=== PATIENT | female | born 1980 | race African-American/Black ===

== ENCOUNTER 2021-12-19 16:30 | Emergency (ER) | payer BC ==
[~2021-12-19] VITALS: Ht 175.3 cm; Wt 104.8 kg
[2021-12-19] MEDS ORDERED: cloNIDine HCL 0.1 MG TAB ONE (16:54)
[2021-12-19] MEDS ORDERED: cloNIDine HCL 0.1 MG TAB PO ONE (17:00)
[2021-12-19] MEDS ORDERED: amLODIPine BESYLATE 5 MG TAB PO ONE (20:15)
[2021-12-19 22:12] LABS: Basophils # (auto) 0.1 10 ^3/uL (0-0.2); Eosinophils # (auto) 0.1 10 ^3/uL (0-0.8); Hemoglobin 8.8 g/dL (12.2-16.2); Lymphocytes # (auto) 2.5 10 ^3/uL (0.4-5.4); Monocytes # (auto) 0.8 10 ^3/uL (0-1.3); Monocytes % (auto) 8.6 % (0.0-12.0)
[2021-12-19 22:15] LABS: Basophils % (auto) 0.7 % (0.0-2.0); Eosinophils % (auto) 0.5 % (0.0-7.0); Hematocrit 29.3 % (36.0-46.0); Lymphocytes % (auto) 27.1 % (10.0-50.0); Mean Corpuscular Hemoglobin 18.4 pg (28.0-32.0); Mean Corpuscular Hgb Conc. 30.2 g/dL (32.0-36.0); Neutrophils # (auto) 5.9 10 ^3/uL (1.6-8.6); Neutrophils % (auto) 63.1 % (37.0-80.0); Nucleated Red Blood Cells % 0.1 %; Red Cell Distribution Width 18.9 % (11.8-14.3); White Blood Cell 9.3 10^3/uL (4.4-10.8)
[2021-12-19 22:24] LABS: Albumin 3.1 g/dL (3.4-5.0); Potassium 3.4 mmol/L (3.5-5.1)
[2021-12-19 22:26] LABS: BUN/Creatinine Ratio 10.8
[2021-12-19 22:28] LABS: Bilirubin, Total 0.3 mg/dL (0.2-1.0); Total Protein 6.7 g/dL (6.4-8.2)
[2021-12-19] MEDS ORDERED: LABETALOL HCL 5 MG/ML 4ML SYRINGE IV ONE (23:00)
[2021-12-19 23:41] LABS: Urine Bacteria FEW /hpf (None Seen); Urine Blood Negative /uL (Negative); Urine Hyaline Cast FEW /lpf (0 - 2); Urine Mucus FEW (None Seen); Urine Specific Gravity 1.013 (1.001-1.035); Urine WBC 6 /hpf (0 - 5)
[2021-12-20] MEDS ORDERED: AMOXICILLIN/CLAVUL 875 MG TAB PO ONE (01:45)
[2021-12-20 02:00] VITALS: BP 168/93
[2021-12-20] MEDS ORDERED: AMOX500T86 PO (02:01)
[2021-12-20] MEDS ORDERED: AML5T PO (02:06)
== END 2021-12-20 02:29 | disposition home or self-care (01) ==
LOC: ER 16:34
DX: I16.0 Hypertensive urgency (principal); J32.9 Chronic sinusitis, unspecified
CPT/HCPCS: 36415; 70450; 71045; 80053; 81001; 84484; 85025; 93005; 96374; 99285; J3490

== ENCOUNTER 2021-12-22 10:26 | Inpatient (IN) | payer BC ==
[~2021-12-22] VITALS: Ht 175.3 cm; Wt 109.8 kg
[~2021-12-22 10:26] MED LIST: AML5T PO; AMOX500T86 PO
[2021-12-22 11:30] LABS: Basophils # (auto) 0.1 10 ^3/uL (0-0.2); Basophils % (auto) 0.7 % (0.0-2.0); Eosinophils # (auto) 0.1 10 ^3/uL (0-0.8); Eosinophils % (auto) 0.8 % (0.0-7.0); Hematocrit 32.6 % (36.0-46.0); Hemoglobin 10.2 g/dL (12.2-16.2); Lymphocytes # (auto) 1.7 10 ^3/uL (0.4-5.4); Lymphocytes % (auto) 21.8 % (10.0-50.0); Mean Corpuscular Hemoglobin 19.2 pg (28.0-32.0); Mean Corpuscular Hgb Conc. 31.3 g/dL (32.0-36.0); Mean Corpuscular Volume 61.2 fL (80.0-100.0); Monocytes # (auto) 0.5 10 ^3/uL (0-1.3); Monocytes % (auto) 6.3 % (0.0-12.0); Neutrophils # (auto) 5.6 10 ^3/uL (1.6-8.6); Neutrophils % (auto) 70.4 % (37.0-80.0); Red Blood Cells 5.32 10^6/uL (4.0-5.20); Red Cell Distribution Width 18.8 % (11.8-14.3); White Blood Cell 7.9 10^3/uL (4.4-10.8)
[2021-12-22 11:31] LABS: Potassium 3.1 mmol/L (3.5-5.1)
[2021-12-22 11:39] LABS: Albumin 3.5 g/dL (3.4-5.0); Bilirubin, Total 0.4 mg/dL (0.2-1.0); Calcium 8.6 mg/dL (8.5-10.1); Total Protein 7.8 g/dL (6.4-8.2)
[2021-12-22] MEDS ORDERED: HYDROcodone-ACET 5/325MG TAB PO PRN (12:45)
[2021-12-22] MEDS ORDERED: hydrALAZINE HCL 20 MG/ML VL IV ONE (12:45)
[2021-12-22] MEDS ORDERED: DOCUSATE SOD 100 MG CAP PO PRN (12:45)
[2021-12-22] MEDS ORDERED: MORPHINE SULFATE INJ 2 MG/ml SYRG IV PRN (12:45)
[2021-12-22] MEDS ORDERED: POTASSIUM CHL 20 Meq TABLET PO ONE (12:45)
[2021-12-22] MEDS ORDERED: NITROGLYCERIN 0.4 MG SL TAB SL PRN (12:45)
[2021-12-22 13:19] LABS: % Iron Saturation 4.1 % (15-50)
[2021-12-22] MEDS ORDERED: DEXTROSE (50%) 50ML SYRG IV PRN (15:00)
[2021-12-22] MEDS ORDERED: SODIUM CHLORIDE 0.9% 1,000 ML IV ONE (15:00)
[2021-12-22 15:33] LABS: Phosphorus 1.8 mg/dL (2.5-4.90)
[2021-12-22] MEDS: InsuLIN REG 1unit/0.01ml Soln (100units/ml) SC SCH ×2 (17:18→23:06)
[2021-12-22] MEDS: ACCU-CHEK COMFORT CURVE STRIP VI SCH ×2 (17:18→21:45)
[2021-12-22 23:21] LABS: Urine Bacteria NONE SEEN /hpf (None Seen); Urine Blood 3+ /uL (Negative); Urine Specific Gravity 1.009 (1.001-1.035); Urine WBC 2 /hpf (0 - 5)
[2021-12-22 23:33] LABS: Creatinine, Urine 44 mg/dL (30.0-125.0); Sodium Urine 105 mmol/L (40-220)
[2021-12-23] VITALS (37 sets, daily range): BP systolic 132–171; BP diastolic 68–103
[2021-12-23 06:51] LABS: Basophils # (auto) 0.1 10 ^3/uL (0-0.2); Basophils % (auto) 1.2 % (0.0-2.0); Eosinophils # (auto) 0 10 ^3/uL (0-0.8); Lymphocytes # (auto) 2.2 10 ^3/uL (0.4-5.4); Monocytes # (auto) 0.7 10 ^3/uL (0-1.3); Neutrophils % (auto) 65.1 % (37.0-80.0)
[2021-12-23 06:52] LABS: Eosinophils % (auto) 0.5 % (0.0-7.0); Hematocrit 31.5 % (36.0-46.0); Hemoglobin 9.5 g/dL (12.2-16.2); Lymphocytes % (auto) 25.1 % (10.0-50.0); Mean Corpuscular Hemoglobin 18.3 pg (28.0-32.0); Mean Corpuscular Hgb Conc. 30.1 g/dL (32.0-36.0); Mean Corpuscular Volume 60.6 fL (80.0-100.0); Monocytes % (auto) 8.1 % (0.0-12.0); Neutrophils # (auto) 5.6 10 ^3/uL (1.6-8.6); Nucleated Red Blood Cells % 0.1 %; Red Blood Cells 5.19 10^6/uL (4.0-5.20); Red Cell Distribution Width 19.3 % (11.8-14.3); White Blood Cell 8.6 10^3/uL (4.4-10.8)
[2021-12-23] MEDS: ACCU-CHEK COMFORT CURVE STRIP VI SCH ×4 (06:54→21:42)
[2021-12-23] MEDS: InsuLIN REG 1unit/0.01ml Soln (100units/ml) SC SCH ×4 (06:57→21:43)
[2021-12-23 07:09] LABS: Albumin 3.2 g/dL (3.4-5.0)
[2021-12-23 07:13] LABS: BUN/Creatinine Ratio 8.7; Bilirubin, Total 0.5 mg/dL (0.2-1.0)
[2021-12-23] MEDS: ENOXAPARIN SOD 40 MG/0.4 ML SYRINGE SC SCH (09:30)
[2021-12-23] MEDS: LOSARTAN POTASSIUM 25 MG TAB PO SCH (09:32)
[2021-12-23] MEDS ORDERED: amLODIPine BESYLATE 5 MG TAB PO SCH (10:00)
[2021-12-23] MEDS ORDERED: METOPROLOL SUCCINATE XL 50 MG TAB PO ONE (10:30)
[2021-12-23] MEDS ORDERED: POTASSIUM CHL 20 Meq TABLET PO ONE (10:30)
[2021-12-23] MEDS ORDERED: POTASSIUM EFFERVESENT TAB 25 MEQ GT ONE (11:00)
[2021-12-23 12:59] LABS: Cholesterol 163 mg/dL (< 200)
[2021-12-23 13:02] LABS: HDL Cholesterol 38 mg/dL (40-59); LDL Cholesterol 111 mg/dL (< 100); Triglycerides 130 mg/dL (< 150)
[2021-12-23] MEDS ORDERED: VERAPAMIL HCL 40 MG TAB PO SCH ×2 (14:00→22:00)
[2021-12-23] MEDS: hydrALAZINE HCL 20 MG/ML VL IV PRN (15:20)
[2021-12-23 20:17] LABS: % Iron Saturation 3.9 % (15-50)
[2021-12-24] VITALS (24 sets, daily range): BP systolic 133–186; BP diastolic 69–117
[2021-12-24] MEDS: ACCU-CHEK COMFORT CURVE STRIP VI SCH ×4 (05:46→21:50)
[2021-12-24] MEDS: InsuLIN REG 1unit/0.01ml Soln (100units/ml) SC SCH ×4 (05:47→21:50)
[2021-12-24 08:34] LABS: BUN/Creatinine Ratio 8.8; Calcium 8.3 mg/dL (8.5-10.1); Magnesium 2.2 mg/dL (1.6-2.6); Potassium 3.2 mmol/L (3.5-5.1)
[2021-12-24] MEDS: HCTZ 25 MG TAB PO SCH (09:30)
[2021-12-24] MEDS: METOPROLOL SUCCINATE XL 50 MG TAB PO SCH (09:31)
[2021-12-24] MEDS: LOSARTAN POTASSIUM 25 MG TAB PO SCH (09:32)
[2021-12-24] MEDS: ENOXAPARIN SOD 40 MG/0.4 ML SYRINGE SC SCH (10:24)
[2021-12-24] MEDS ORDERED: POTASSIUM EFFERVESENT TAB 25 MEQ PO ONE (12:15)
[2021-12-24] MEDS: hydrALAZINE HCL 20 MG/ML VL IV PRN (13:38)
[2021-12-24] MEDS ORDERED: ACETAMINOPHEN 500 MG TAB PO ONE (15:35)
[2021-12-24] MEDS: ACETAMINOPHEN 500 MG TAB PO PRN (15:40)
[2021-12-24] MEDS ORDERED: ACETAMINOPHEN 500 MG TAB PO PRN (15:45)
[2021-12-24] MEDS: hydrALAZINE HCL 10 MG TAB PO SCH ×2 (18:10→22:03)
[2021-12-25] VITALS (9 sets, daily range): BP systolic 141–183; BP diastolic 77–108
[2021-12-25] MEDS: hydrALAZINE HCL 20 MG/ML VL IV PRN (00:01)
[2021-12-25] MEDS: ACETAMINOPHEN 500 MG TAB PO PRN (01:47)
[2021-12-25 06:07] LABS: Basophils # (auto) 0.1 10 ^3/uL (0-0.2); Basophils % (auto) 1.1 % (0.0-2.0); Eosinophils # (auto) 0 10 ^3/uL (0-0.8); Eosinophils % (auto) 0.6 % (0.0-7.0); Hemoglobin 9.6 g/dL (12.2-16.2); Lymphocytes # (auto) 1.9 10 ^3/uL (0.4-5.4); Lymphocytes % (auto) 26.1 % (10.0-50.0); Mean Corpuscular Hemoglobin 18.5 pg (28.0-32.0); Mean Corpuscular Hgb Conc. 30.9 g/dL (32.0-36.0); Mean Corpuscular Volume 59.8 fL (80.0-100.0); Monocytes # (auto) 0.6 10 ^3/uL (0-1.3); Monocytes % (auto) 7.7 % (0.0-12.0); Neutrophils # (auto) 4.7 10 ^3/uL (1.6-8.6); Neutrophils % (auto) 64.5 % (37.0-80.0); Red Blood Cells 5.19 10^6/uL (4.0-5.20); Red Cell Distribution Width 19.4 % (11.8-14.3); White Blood Cell 7.2 10^3/uL (4.4-10.8)
[2021-12-25] MEDS: hydrALAZINE HCL 10 MG TAB PO SCH ×3 (06:37→21:36)
[2021-12-25] MEDS: ACCU-CHEK COMFORT CURVE STRIP VI SCH ×2 (06:38→11:30)
[2021-12-25] MEDS: InsuLIN REG 1unit/0.01ml Soln (100units/ml) SC SCH ×2 (06:40→11:30)
[2021-12-25 06:48] LABS: Potassium 3.2 mmol/L (3.5-5.1)
[2021-12-25 06:55] LABS: BUN/Creatinine Ratio 11.9; Calcium 8.7 mg/dL (8.5-10.1)
[2021-12-25] MEDS: METOPROLOL SUCCINATE XL 50 MG TAB PO SCH (09:14)
[2021-12-25] MEDS: HCTZ 25 MG TAB PO SCH (09:17)
[2021-12-25] MEDS: LOSARTAN POTASSIUM 25 MG TAB PO SCH (09:19)
[2021-12-25] MEDS: ENOXAPARIN SOD 40 MG/0.4 ML SYRINGE SC SCH (09:19)
[2021-12-25] MEDS ORDERED: POTASSIUM EFFERVESENT TAB 25 MEQ PO ONE (11:00)
[2021-12-25] MEDS ORDERED: HCTZ 25 MG TAB PO ONE (14:45)
[2021-12-25] MEDS ORDERED: METOPROLOL SUCCINATE XL 50 MG TAB PO ONE (14:45)
[2021-12-25] MEDS ORDERED: FERROUS SULFATE 325mg EC TAB PO ONE (15:00)
[2021-12-25] MEDS: ONDANSETRON HCL 4 MG/2 ML VIAL IV PRN (15:57)
[2021-12-26] VITALS (7 sets, daily range): BP systolic 138–174; BP diastolic 81–105
[2021-12-26] MEDS: hydrALAZINE HCL 10 MG TAB PO SCH ×3 (05:12→22:43)
[2021-12-26] MEDS: HCTZ 25 MG TAB PO SCH (10:01)
[2021-12-26] MEDS: METOPROLOL SUCCINATE XL 50 MG TAB PO SCH (10:02)
[2021-12-26] MEDS: LOSARTAN POTASSIUM 25 MG TAB PO SCH (10:02)
[2021-12-26] MEDS: ENOXAPARIN SOD 40 MG/0.4 ML SYRINGE SC SCH (10:03)
[2021-12-26] MEDS ORDERED: amLODIPine BESYLATE 5 MG TAB PO ONE (11:45)
[2021-12-26] MEDS: hydrALAZINE HCL 20 MG/ML VL IV PRN (17:02)
[2021-12-26] MEDS: ONDANSETRON HCL 4 MG/2 ML VIAL IV PRN (22:52)
[2021-12-27] VITALS (8 sets, daily range): BP systolic 106–147; BP diastolic 62–84
[2021-12-27] MEDS ORDERED: hydrALAZINE HCL 25 MG TAB ONE (06:24)
[2021-12-27] MEDS: hydrALAZINE HCL 10 MG TAB PO SCH ×3 (06:27→22:02)
[2021-12-27 06:53] LABS: Basophils # (auto) 0.1 10 ^3/uL (0-0.2); Eosinophils # (auto) 0 10 ^3/uL (0-0.8); Lymphocytes # (auto) 1.7 10 ^3/uL (0.4-5.4); Neutrophils # (auto) 3.8 10 ^3/uL (1.6-8.6); White Blood Cell 6.2 10^3/uL (4.4-10.8)
[2021-12-27 06:57] LABS: Basophils % (auto) 1.1 % (0.0-2.0); Eosinophils % (auto) 0.8 % (0.0-7.0); Hematocrit 31.2 % (36.0-46.0); Hemoglobin 9.4 g/dL (12.2-16.2); Lymphocytes % (auto) 27.5 % (10.0-50.0); Mean Corpuscular Hemoglobin 18.4 pg (28.0-32.0); Mean Corpuscular Hgb Conc. 30.2 g/dL (32.0-36.0); Monocytes # (auto) 0.7 10 ^3/uL (0-1.3); Monocytes % (auto) 10.5 % (0.0-12.0); Neutrophils % (auto) 60.1 % (37.0-80.0); Red Blood Cells 5.12 10^6/uL (4.0-5.20); Red Cell Distribution Width 19.6 % (11.8-14.3)
[2021-12-27 07:06] LABS: Potassium 3.3 mmol/L (3.5-5.1)
[2021-12-27 07:07] LABS: INR 0.95 (0.9-1.15); Partial Thromboplastin Time 25.9 sec (24.6-33.4)
[2021-12-27] MEDS: METOPROLOL SUCCINATE XL 50 MG TAB PO SCH (09:31)
[2021-12-27] MEDS: LOSARTAN POTASSIUM 25 MG TAB PO SCH (09:32)
[2021-12-27] MEDS: amLODIPine BESYLATE 5 MG TAB PO SCH (09:32)
[2021-12-27] MEDS: ENOXAPARIN SOD 40 MG/0.4 ML SYRINGE SC SCH (09:33)
[2021-12-27] MEDS: HCTZ 25 MG TAB PO SCH (09:33)
[2021-12-27] MEDS ORDERED: SPIRONOLACTONE 25 MG TAB PO ONE (15:00)
[2021-12-27] MEDS ORDERED: IOHEXOL 350 MG/ML 100ML IJ ONE (15:27)
[2021-12-27] MEDS ORDERED: LIDOCAINE 2%HCL (LOCAL ANESTH.) INJ 20ML MDV ONE (15:27)
[2021-12-27] MEDS ORDERED: MIDAZOLAM HCL 2MG/2ML 2ml VIAL (1mg/ml) ONE (15:35)
[2021-12-27] MEDS ORDERED: fentaNYL CITRATE 100 MCG/2 ML VL ONE (15:35)
[2021-12-27] MEDS ORDERED: ANGIOMAX 250 MG VIAL IV ONE (15:36)
[2021-12-27] MEDS ORDERED: SODIUM CHL 0.9% 0 ML ONE (15:36)
[2021-12-27] MEDS ORDERED: hydrALAZINE HCL 20 MG/ML VL ONE (15:41)
[2021-12-27] MEDS ORDERED: cloNIDine HCL 0.1 MG TAB ONE (15:49)
[2021-12-27] MEDS ORDERED: ONDANSETRON HCL 4 MG/2 ML VIAL ONE (15:58)
[2021-12-27] MEDS: ONDANSETRON HCL 4 MG/2 ML VIAL IV PRN (18:33)
[2021-12-27] MEDS ORDERED: TEMAZEPAM 15 MG CAP PO ONE (21:15)
[2021-12-27] MEDS ORDERED: HYDROcodone-ACET 5/325MG TAB PO PRN (21:15)
[2021-12-28 05:00] VITALS: BP 144/72
[2021-12-28] MEDS: hydrALAZINE HCL 10 MG TAB PO SCH (05:16)
[2021-12-28 09:08] LABS: BUN/Creatinine Ratio 11.6; Calcium 8.9 mg/dL (8.5-10.1)
[2021-12-28 09:23] LABS: Potassium 2.8 mmol/L (3.5-5.1)
[2021-12-28] MEDS ORDERED: hydrALAZINE HCL 25 MG TAB PO PRN (09:45)
[2021-12-28] MEDS ORDERED: LOSARTAN POTASSIUM 50 MG TAB PO SCH (10:00)
[2021-12-28] MEDS ORDERED: HCTZ 25 MG TAB PO SCH (10:00)
[2021-12-28] MEDS ORDERED: SPIRONOLACTONE 25 MG TAB PO SCH (10:00)
[2021-12-28] MEDS: amLODIPine BESYLATE 5 MG TAB PO SCH (10:24)
[2021-12-28] MEDS: ENOXAPARIN SOD 40 MG/0.4 ML SYRINGE SC SCH (10:25)
[2021-12-28] MEDS: METOPROLOL SUCCINATE XL 50 MG TAB PO SCH (10:25)
[2021-12-28] MEDS ORDERED: POTASSIUM EFFERVESENT TAB 25 MEQ PO ONE ×2 (11:15→14:00)
[2021-12-28] MEDS: SOD CHL 0.9%/ KCL 40MEQ 1,000 ML IV SCH ×2 (11:43→20:33)
[2021-12-28 13:00] VITALS: BP 160/91
[2021-12-28] MEDS: cloNIDine HCL 0.1 MG TAB PO SCH ×2 (14:10→22:31)
[2021-12-28 16:50] VITALS: BP 122/73
[2021-12-28 20:00] VITALS: BP 123/58
[2021-12-28 22:00] VITALS: BP 123/58
[2021-12-29 05:00] VITALS: BP 129/77
[2021-12-29] MEDS: cloNIDine HCL 0.1 MG TAB PO SCH ×3 (05:18→14:42)
[2021-12-29] MEDS: SOD CHL 0.9%/ KCL 40MEQ 1,000 ML IV SCH ×2 (06:26→15:45)
[2021-12-29 09:00] VITALS: BP 127/70
[2021-12-29] MEDS: amLODIPine BESYLATE 5 MG TAB PO SCH (09:36)
[2021-12-29] MEDS: METOPROLOL SUCCINATE XL 50 MG TAB PO SCH (09:36)
[2021-12-29] MEDS: ENOXAPARIN SOD 40 MG/0.4 ML SYRINGE SC SCH (09:36)
[2021-12-29 10:18] LABS: Calcium 8.5 mg/dL (8.5-10.1); Potassium 3.7 mmol/L (3.5-5.1)
[2021-12-29 10:22] LABS: BUN/Creatinine Ratio 12.9; Bilirubin, Total 0.2 mg/dL (0.2-1.0); Total Protein 6.5 g/dL (6.4-8.2)
[2021-12-29 13:00] VITALS: BP 140/83
[2021-12-29] MEDS ORDERED: AML5T PO (15:20)
[2021-12-29] MEDS ORDERED: METO-6 PO (15:20)
[2021-12-29] MEDS ORDERED: HYDR50TA15 PO (15:20)
[2021-12-29 17:00] VITALS: BP 143/92
== END 2021-12-29 18:14 | disposition home or self-care (01) | DRG 305 ==
LOC: ER 10:26 → TELE 12:53 → ICU WEST 12-23 09:01 → TELE-WESTW 12-25 02:07
PROVIDERS: ADMIT Nurse Practitioner Family; ATTEND Student in an Organized Health Care Education/Training Program
PROC: B4181ZZ Fluoroscopy of Bilateral Renal Arteries using Low Osmolar Contrast (ICD-10-PCS; principal; 2021-12-27)
DX: I16.1 Hypertensive emergency (principal); N17.9 Acute kidney failure, unspecified; I42.2 Other hypertrophic cardiomyopathy; D50.9 Iron deficiency anemia, unspecified; E11.65 Type 2 diabetes mellitus with hyperglycemia; E66.9 Obesity, unspecified; Z20.822 Contact with and (suspected) exposure to COVID-19; R51.9 Headache, unspecified; I70.1 Atherosclerosis of renal artery; I10 Essential (primary) hypertension; E87.6 Hypokalemia; Z59.7 Insufficient social insurance and welfare support; Z79.899 Other long term (current) drug therapy; Z82.0 Family history of epilepsy and other diseases of the nervous system; Z82.49 Family history of ischemic heart disease and other diseases of the circulatory system; Z83.3 Family history of diabetes mellitus; Z91.199 Patient's noncompliance with other medical treatment and regimen due to unspecified reason; Z98.891 History of uterine scar from previous surgery; Z68.34 Body mass index [BMI] 34.0-34.9, adult
CPT/HCPCS: 36415; 71045; 80048; 80053; 80061; 81001; 81025; 82570; 82607; 82728; 82962; 83036; 83540; 83550; 83735; 83880; 84100; 84132; 84300; 84443; 84484; 85025; 85610; 85730; 87081; 93005; 93306; 93975; 96361; 96374; 99152; 99291; G0378; J1815; J2250; J2405

== ENCOUNTER 2022-06-28 18:34 | Emergency (ER) | payer SELFPAY ==
[~2022-06-28] VITALS: Ht 175.3 cm; Wt 105.0 kg
[~2022-06-28 18:34] MED LIST changes: -AMOX500T86 PO; +HYDR50TA15 PO; +METO-6 PO
[2022-06-28] MEDS ORDERED: IBUPROFEN 800 MG TAB PO ONE (19:45)
[2022-06-28] MEDS ORDERED: ONDANSETRON ODT 4 MG TAB PO ONE (23:00)
[2022-06-28] MEDS ORDERED: HYDROcodone-ACET 10/325MG TAB PO ONE (23:00)
[2022-06-28] MEDS ORDERED: ACE3T PO (23:01)
[2022-06-28 23:16] VITALS: BP 167/94
== END 2022-06-29 01:06 | disposition home or self-care (01) ==
LOC: ER 18:34
DX: S52.591A Other fractures of lower end of right radius, initial encounter for closed fracture (principal); I10 Essential (primary) hypertension; Z79.899 Other long term (current) drug therapy; V29.99XA Rider (driver) (passenger) of other motorcycle injured in unspecified traffic accident, initial encounter; Y93.89 Activity, other specified; Y92.89 Other specified places as the place of occurrence of the external cause; Y99.8 Other external cause status
CPT/HCPCS: 29125; 73110; 99284; Q0162

== ENCOUNTER → 2023-01-04 | Outpatient (CLI) | payer MEDICAID ==
[~2023-01-04] MED LIST changes: -AML5T PO; +ASPITAB34 PO; +FERR325T24 PO; +HYDR-4296 PO; -HYDR50TA15 PO; +LEVO500T91 PO; +LOSA100T25 PO; -METO-6 PO; +METO1TAB9 PO; +METR-344 PO; +NIFE1TAB30 PO; +POTA8TAB38 PO; +TRAM50TA2 PO
[2023-01-04 12:32] LABS: Basophils # (auto) 0.1 10 ^3/uL (0-0.2); Eosinophils # (auto) 0.1 10 ^3/uL (0-0.8); Hemoglobin 9.9 g/dL (12.2-16.2); Monocytes # (auto) 0.6 10 ^3/uL (0-1.3); White Blood Cell 6.8 10^3/uL (4.4-10.8)
[2023-01-04 12:34] LABS: Basophils % (auto) 0.9 % (0.0-2.0); Hematocrit 32.1 % (36.0-46.0); Mean Corpuscular Hemoglobin 20.1 pg (28.0-32.0); Mean Corpuscular Hgb Conc. 30.8 g/dL (32.0-36.0); Mean Corpuscular Volume 65.2 fL (80.0-100.0); Monocytes % (auto) 9.3 % (0.0-12.0); Neutrophils % (auto) 58.8 % (37.0-80.0); Nucleated Red Blood Cells % 0.2 %; Red Blood Cells 4.91 10^6/uL (4.0-5.20); Red Cell Distribution Width 22.3 % (11.8-14.3)
[2023-01-04 12:52] LABS: Chloride 101 mmol/L (98-107); Sodium 138 mmol/L (136-145)
[2023-01-04 12:53] LABS: Anion Gap 6 (5-15); Calcium 9.3 mg/dL (8.7-10.4); Carbon Dioxide 31 mmol/L (20-30)
[2023-01-04 12:58] LABS: BUN/Creatinine Ratio 8.7 (10.0-20.0); Blood Urea Nitrogen 11 mg/dL (9-23); Glucose 213 mg/dL (74-106)
[2023-01-04 13:13] LABS: Potassium 2.8 mmol/L (3.5-5.1)
== END | disposition home or self-care (01) ==
LOC: LAB 12:13
PROVIDERS: ATTEND Nurse Practitioner Acute Care
DX: Z98.51 Tubal ligation status (principal)
CPT/HCPCS: 36415; 80048; 85025

== ENCOUNTER 2024-05-03 00:19 | Emergency (ER) | payer BC, MEDICAID ==
[~2024-05-03] VITALS: Ht 175.3 cm; Wt 102.1 kg
[~2024-05-03 00:19] MED LIST changes: -HYDR-4296 PO; +HYDR25TA88 PO
[2024-05-03 00:35] VITALS: BP 156/95; PULSE 96; RESP 14; TEMP 99.7; O2SAT 100
--- NOTE | 2024-05-03 01:01 | ED.PDOC ---
SOB-HPI HPI Comments A 44 YEAR OLD FE/MALE PRESENTS TO THE ED WITH COMPLAINT OF FLU LIKE SYMPTOMS . PATIENT REPORTS SYMPTOMS OF BODY ACHES, HEADACHE COUGH AND DIZZINESS X3 DAYS. PATIENT DENIES FEVER, CHILLS, SHORTNESS OF BREATH, CHEST PAIN, ABDOMINAL PAIN, NAUSEA, VOMITING, HEADACHE, OR OTHER COMPLAINTS. NO OTHER SYMPTOMS OR MODIFYING FACTORS AT THIS TIME Chief Complaint: Flu like Time Seen by MD: 00:32 Primary Care Provider: AL Reviewed notes: Nurses Notes, Medications, Allergies Information Source: Patient Past Medical History PAST MEDICAL HISTORY: Anemia, High Lipids, HTN Surgical History: [employer]IST History: Other Family History Family History: Reviewed,noncontributory to illness, Family hx of DM, Family hx of Cancer, Family hx of heart goyo Social History Smoker: Non-Smoker Alcohol: Denies ETOH Use Drugs: Marijuana Lives In: Home Constitutional: reports: others (BODY ACHES); denies: chills, diaphoresis, fatigue, fever, malaise, sweats, weakness EENTM: denies: blurred vision, double vision, ear bleeding, ear discharge, ear drainage, ear pain, ear ringing, eye pain, eye redness, hearing loss, mouth pain, mouth swelling, nasal discharge, nose bleeding, nose congestion, nose pain, photophobia, tearing, throat pain, throat swelling, voice changes, others Respiratory: reports: cough; denies: hemoptysis, orthopnea, SOB at rest, shortness of breath, SOB with excertion, stridor, wheezing, others Cardiovascular: denies: chest pain, dizzy spells, diaphoresis, Dyspnea on exertion, edema, irregular heart beat, left arm pain, lightheadedness, palpitations, PND, syncope, others Gastrointestinal: denies: abdomen distended, abdominal pain, blood streaked bowels, constipated, diarrhea, dysphagia, difficulty swallowing, hematemesis, melena, nausea, poor appetite, poor fluid intake, rectal bleeding, rectal pain, vomiting, others Genitourinary: denies: abnormal vagina bleeding, burning, dyspareunia, dysuria, flank pain, frequency, hematuria, incontinence, pain, , vagina discharge, urgency, others Neurological: reports: headache; denies: dizziness, fainting, left sided numbness, left sided weakness, numbness, paresthesia, pre-existing deficit, right sided numbness, right sided weakness, seizure, speech problems, tingling, tremors, weakness, others Musculoskeletal: denies: back pain, gout, joint pain, joint swelling, muscle pain, muscle stiffness, neck pain, others Integumetry: denies: bruises, change in color, change in hair/nails, dryness, laceration, lesions, lumps, rash, wounds, others Allergic/Immunocompromised: denies: Difficulty Healing, Frequent Infections, Hives, Itching, others Hematologic/Lymphatic: denies: anemia, blood clots, easy bleeding, easy bruising, swollen glands, others Endocrine: denies: excessive hunger, excessive sweating, excessive thirst, excessive urination, flushing, intolerance to cold, intolerance to heat, unexplained weight gain, unexplained weight loss, others Psychiatric: denies: anxiety, bipolar disorder, depression, hopeless, panic disorder, schizophrenia, sleepless, suicidal, others Physical Exam General Appearance: No Apparent Distress, Normal HEENT: Normal ENT Inspection, Pharynx Normal, TMs Normal Neck: Full Range of Motion, Non-Tender Respiratory: Lungs Clear, No Respiratory Distress, Normal Breath Sounds Cardiovascular: No Edema, No JVD, No Murmur, No Gallop, Normal Peripheral Pulses, Regular Rate/Rhythm Breast Exam: Deferred Gastrointestinal: No Organomegaly, Non Tender, No Pulsatile Mass, Normal Bowel Sounds, Soft Genitalia: Deferred Pelvic: Deferred Rectal: Deferred Extremities: Normal capillary refill, Normal inspection, Normal range of motion , Non-tender, No pedal edema Musculoskeletal : Apperance: Normal Neurologic: Alert, auto transmission specialist II-XII nml as Tested, No Motor Deficits, Normal Affect, Normal Mood, No Sensory Deficits Cerebellar Function: Normal Reflexes: Normal Skin: Dry, Normal Color, Warm Lymphatic: No Adenopathy Was a procedure done? Was a procedure done?: No Differential Dx Differential Diagnosis: Bronchitis, Pneumonia, URI X-Ray, Labs, Meds, VS Vital Signs Date Time Temp Pulse Resp B/P (MAP) Pulse Ox O2 Delivery O2 Flow Rate FiO2 05/03/24 01:03 Room Air 05/03/24 00:35 99.7 96 14 156/95 (115) 100 99.7 05/03/24 00:35 99.7 96 14 156/95 (115) 100 Lab Test 05/03/24 00:43 Range/Units Influenza Type A Antigen Negative Negative Influenza Type B Antigen Negative Negative SARS-CoV-2 Antigen (Rapid) Positive NEGATIVE X-Ray, Labs, Meds, VS Comment COVID-19 POSITIVE. SCRIPT PROMETHAZINE-DM FOR COUGH. NOTE PROVIDED FOR WORK X3 DAYS. FOLLOW-UP WITH PCP IN 1 TO 2 DAYS. TAKE MEDICATIONS PRESCRIBED. RETURN TO ED FOR ANY NEW OR WORSENING SYMPTOMS. Time of 1ST Reevaluation: :31 Reevaluation 1ST: Improved Patient Education/Counseling: Diagnosis, Treatment, Prognosis, Need For Follow Up Family Education/Counseling: No Family Present Departure 1 Departure Time of Disposition: :29 Impression: Primary Impression: COVID-19 Disposition: 01 HOME / SELF CARE / HOMELESS Condition: Stable e-Prescriptions Promethazine-Dm (Promethazine Hydrochlorid 6.25-15 mg/5Ml) 1 Saadia Saadia 5 ML PO TID for 5 Days, #75 ML Prov: CAITLIN GARRISON 05/03/24 Discharged With: Self Critical Care Note Critical Care Time?: No Stability Stability form required: No Heart Score Heart Score: Heart Score Response (Comments) Value History N/A 0 EKG N/A 0 Age 45-64 1 Risk Factors N/A 0 Troponin N/A 0 Total 1 CAITLIN GARRISON May 03, 2024 01:01
[2024-05-03 01:27] LABS: Rapid Influenza A Negative (Negative); Rapid Influenza B Negative (Negative)
[2024-05-03 01:30] LABS: COVID19 ANTIGEN SOFIA FIA POSITIVE (NEGATIVE)
[2024-05-03] MEDS ORDERED: PROM1SOL2 PO (01:33)
== END 2024-05-03 01:42 | disposition home or self-care (01) ==
LOC: ER 00:22
DX: U07.1 COVID-19 (principal); E78.5 Hyperlipidemia, unspecified; I10 Essential (primary) hypertension; D64.9 Anemia, unspecified; Z98.890 Other specified postprocedural states
CPT/HCPCS: 36415; 87426; 87804